=== PATIENT | male | born 1970 ===

== ENCOUNTER 2017-03-14 17:25 | Emergency (ER) | payer SELFPAY ==
[2017-03-14 17:31] VITALS: TEMP 97.7; O2SAT 99
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
[2017-03-14 18:59] VITALS: BP 134/84; PULSE 84; RESP 16
--- NOTE | 2017-03-15 08:49 | RAD ---
PROCEDURE: Radiographs of the Lumbar Spine. HISTORY: r/o fx COMPARISON: No prior. FINDINGS: BONES: No fracture. Mild levoscoliosis. DISC SPACES: Unremarkable. OTHER FINDINGS: Multiple right renal calculi. IMPRESSION: Multiple right renal calculi. Mild levoscoliosis.
== END 2017-03-14 18:58 | disposition home or self-care (01) ==
LOC: C.ER 17:25
DX: S33.5XXA Sprain of ligaments of lumbar spine, initial encounter (principal); V43.52XA Car driver injured in collision with other type car in traffic accident, initial encounter
CPT/HCPCS: 72100; 96372; 99283; J1885